=== PATIENT | male | born 1975 | race African-American/Black ===

== ENCOUNTER 2024-05-08 10:03 | Emergency (ER) | payer OTHER ==
[2024-05-08 10:53] VITALS: BP 141/95; PULSE 92; RESP 20; TEMP 98.8; BMI 69.2
[2024-05-08] MEDS ORDERED: IBUPROFEN 600 MG TABLET (FP) PO ONE (11:57)
[2024-05-08] MEDS: IBUPROFEN 600 MG TABLET (FP) PO ONE (12:04)
== END 2024-05-08 12:33 | disposition home or self-care (01) ==
LOC: FER 10:03
DX: S02.2XXA Fracture of nasal bones, initial encounter for closed fracture (principal); Y04.8XXA Assault by other bodily force, initial encounter
CPT/HCPCS: 70450-TC; 70486-TC; 99284-25